=== PATIENT | female | born 2000 | race American Indian/Alaskan Native ===

== ENCOUNTER 2020-04-25 09:58 | Emergency (ER) | payer MEDICAID ==
[2020-04-25] MEDS ORDERED: SODIUM CHLORIDE 0.9% 1000 ML 1,000 ML IV ONE (10:39)
[2020-04-25] MEDS ORDERED: fentaNYL 100 MCG/2 ML INJ IV ONE (10:39)
[2020-04-25] MEDS ORDERED: ONDANSETRON 4 MG/2 ML INJ IV ONE (10:39)
[2020-04-25 10:45] LABS: Basophils # (Auto) 0.1 K/mm3 (0.0-0.1); Basophils % (Auto) 0.4 % (0.0-1.8); Eosinophils # (Auto) 0.3 K/mm3 (0.0-0.4); Eosinophils % (Auto) 2.1 % (0.0-4.3); Hematocrit 35.3 % (30.3-42.9); Lymphocytes # (Auto) 1.2 K/mm3 (1.2-5.4); Lymphocytes % (Auto) 8.6 % (13.4-35.0); Mean Corpuscular HGB Conc 34 % (30-34); Mean Corpuscular Volume 74 fl (79-97); Monocytes # (Auto) 0.9 K/mm3 (0.0-0.8); Monocytes % (Auto) 6.6 % (0.0-7.3); Platelet Count 312 K/mm3 (140-440); Red Blood Count 4.77 M/mm3 (3.65-5.03); Red Cell Distribution Width 17.3 % (13.2-15.2)
--- NOTE | 2020-04-25 10:45 | Emergency Department Report ---
HPI - General Chief Complaint: Abdominal Pain Time Seen by Provider: 04/25/20 10:33 - [facility] HPI: Room 22 The patient is a 19-year-old female presenting with a chief complaint of abdominal pain. The patient states she is 4 days from a vaginal d elivery. The patient states that approximately 23: 00 last night she developed pain in the right lower quadrant that is difficult to describe. Patient states the pain is been constant and associated with nausea and vomiting. Patient denies dysuria or fever. Patient gives her pain a score of 10/10. The patient states she did not contact her [facility] Past Medical Hx - Past Medical History Previous Medical History?: No - Surgical History Past Surgical History?: No - Family History Family history: no significant - Social History Smoking Status: Never Smoker Substance Use Type: None (Denies illicit drug use) - Medications Home Medications: Home Medications Medication Instructions Recorded Confirmed Last Taken Type HYDROcodone/APAP 5-325 [[place] 1 each PO Q6HR PRN #10 tablet 04/25/20 Unknown Rx 5/325] Promethazine [Phenergan] 25 mg PO Q6HR PRN #20 tab 04/25/20 Unknown Rx levoFLOXacin [Levaquin TAB] 500 mg PO QDAY #10 tablet 04/25/20 Unknown Rx ED Review of Systems ROS: Stated complaint: 4 DAYS POST /ABD PAIN Other details as noted in HPI Constitutional: denies: fever Respiratory: no symptoms reported Endocrine: no symptoms reported Gastrointestinal: abdominal pain, nausea, vomiting Genitourinary: denies: dysuria Musculoskeletal: denies: back pain Physical Exam - Physical Exam Vital Signs: Vital Signs 04/25/20 10:16 Pulse Rate 84 Respiratory 14 Rate Blood Pressure 168/108 [Left] O2 Sat by Pulse 99 Oximetry Physical Exam: GENERAL: The patient is well-developed well-nourished female lying on stretcher appearing to be in mild discomfort. [] HEENT: Normocephalic. Atraumatic. Extraocular motions are intact. Patient has moist mucous membranes. NECK: Supple. Trachea midline CHEST/LUNGS: Clear to auscultation. There is no respiratory distress noted. HEART/CARDIOVASCULAR: Regular. There is no tachycardia. There is no gallop rub or murmur. ABDOMEN: Abdomen is soft, with tenderness to palpation in the right upper quadrant and right lower quadrant SKIN: There is no rash. There is no edema. There is no diaphoresis. NEURO: The patient is awake, alert, and oriented. The patient is cooperative. The patient has normal speech MUSCULOSKELETAL: There is no evidence of acute injury. There is no CVA tenderness ED Course Vital Signs 04/25/20 10:16 Pulse Rate 84 Respiratory 14 Rate Blood Pressure 168/108 [Left] O2 Sat by Pulse 99 Oximetry ED Medical Decision Making - Lab Data Result diagrams: 04/25/20 10:35 04/25/20 10:35 - Radiology Data Radiology results: report reviewed (CT abdomen pelvis, pelvic ultrasound), image reviewed (CT abdomen pelvis, pelvic ultrasound) [address] [address] Cat Scan Report Signed Patient: STEVE RAYMUNDO MR#: [id number] [birth year] : 2000 Acct:[id number] Age/Sex: 19 / F ADM Date: 04/25/20 Loc: ED Attending Dr: Ordering Physician: BISHNU BUTT MD Date of Service: 04/25/20 Procedure(s): CT abdomen pelvis w con Accession Number(s): [id number] cc: BISHNU BUTT MD CT of the abdomen and pelvis with contrast INDICATION: right lower quadrant pain COMPARISON: None FINDINGS: There is minimal basilar atelectasis. The liver, spleen, pancreas, adrenal glands and kidneys show no abnormalities. No definite gallbladder or biliary tree abnormality. No adenopathy is seen. There is small amount of retroperitoneal fluid and multiple dilated veins seen. CT of the pelvis shows an enlarged uterus consistent with the recent . There is no definite evidence for endometritis. No uterine perforation is seen. Appendix is not seen. No bowel obstruction. No free air demonstrated. No significant skeletal lesion. IMPRESSION: changes. The appendix is not seen. No definite acute abnormality. Automated exposure control was utilized to diminish radiation dose. Signer Name: Terry Roach MD Signed: 04/25/2020 11:58 AM Workstation Name: [id number] Transcribed By: MAIA Dictated By: Terry Roach MD Electronically Authenticated By: Terry Roach MD Signed Date/Time: 04/25/20 1158 DD/ 1148 TD/TT: [address] [place] [address] Ultrasound Report Signed Patient: STEVE RAYMUNDO MR#: [id number] : 2000 Acct:[id number] Age/Sex: 19 / F ADM Date: 04/25/20 Loc: ED Attending Dr: Ordering Physician: BISHNU BUTT MD Date of Service: 04/25/20 Procedure(s): US pelvis duplex doppler comp Accession Number(s): [id number] cc: BISHNU BUTT MD US pelvis duplex doppler comp, US transvaginal INDICATION / CLINICAL INFORMATION: Right pelvic pain. 4 days . COMPARISON: None available. FINDINGS: There is an enlarged uterus measuring 19 cm. The endometrial stripe thickness is 2.3 cm. The right ovary measures 4.4 x 2.1 cm. The left ovary measures 3.6 x 2.2 cm. Doppler imaging shows normal ovarian blood flow bilaterally. A Near the right adnexa an oval hypoechoic solid density is identified measuring 4.4 x 7 cm. There are adjacent prominent vascular structures but the hypodense solid lesion does not appear hypervascular itself. No fluid collections are seen in the cul-de-sac. IMPRESSION: 1. Hypoechoic solid-appearing density in the right adnexal region is of uncertain etiology. 2. No other significant pelvic abnormalities. Signer Name: Tarun Mchugh MD Signed: 04/25/2020 1:42 PM Workstation Name: [id number] Transcribed By: HI Dictated By: Tarun Mchugh MD Electronically Authenticated By: Tarun Mchugh MD Signed Date/Time: 04/25/20 1342 DD/ 1339 TD/TT: - Medical Decision Making CT and ultrasound results discussed with patient. Patient informed of right adnexal density and need for prompt follow-up with her flat drier. Patient verbalized understanding - Differential Diagnosis Appendicitis, ovarian cyst, UTI, pyelonephritis Critical care attestation.: If time is entered above; I have spent that time in minutes in the direct care of this critically ill patient, excluding procedure time. ED Disposition Clinical Impression: Abdominal pain, UTI (urinary tract infection), Adnexal mass Disposition: DC-01 TO HOME OR SELFCARE Is pt being admited?: No Does the pt Need Aspirin: No Condition: Stable Instructions: Abdominal Pain (ED) Additional Instructions: Return to the emergency department should you develop worsening symptoms, inability to tolerate food or liquids, high fever or any other concerns Prescriptions: levoFLOXacin [Levaquin TAB] 500 mg PO QDAY #10 tablet HYDROcodone/APAP 5-325 [[place] 5/325] 1 each PO Q6HR PRN #10 tablet PRN Reason: Pain Promethazine [Phenergan] 25 mg PO Q6HR PRN #20 tab PRN Reason: Nausea Referrals: Your, flat drier [Other] - [facility] Time of Disposition: 15:43
[2020-04-25 11:08] LABS: Alanine Aminotransferase 33 units/L (7-56); Albumin 4.1 g/dL (3.9-5); BUN/Creatinine Ratio 8; Blood Urea Nitrogen 5 mg/dL (7-17); Calcium 9.8 mg/dL (8.4-10.2); Hemolysis Index 2
--- NOTE | 2020-04-25 12:02 | Cat Scan Report ---
CT of the abdomen and pelvis with contrast INDICATION: right lower quadrant pain COMPARISON: None FINDINGS: There is minimal basilar atelectasis. The liver, spleen, pancreas, adrenal glands and kidne ys show no abnormalities. No definite gallbladder or biliary tree abnormality. No adenopathy is seen. There is small amount of retroperitoneal fluid and multiple dilated veins seen. CT of the pelvis shows an enlarged uterus consistent with the recent . There is no definite evidence for endometritis. No uterine perforation is seen. Appendix is not seen. No bowel obstruction . No free air demonstrated. No significant skeletal lesion. IMPRESSION: changes. The appendix is not seen. No definite acute abnormality. Automated exposure control was utilized to diminish radiation dose. Signer Name: Terry Roach MD Signed: 04/25/2020 11:58 AM Workstation Name: [id number]
--- NOTE | 2020-04-25 13:47 | Ultrasound Report ---
US pelvis duplex doppler comp, US transvaginal INDICATION / CLINICAL INFORMATION: Right pelvic pain. 4 days . COMPARISON: None available. FINDINGS: There is an enlarged uterus measuring 19 cm. The endometrial stripe thickness is 2.3 cm. The right ovary measures 4.4 x 2.1 cm. The left ovary measures 3.6 x 2.2 cm. Doppler imaging shows normal ovarian blood flow bilaterally. A Near the right adnexa an oval hypoechoic solid density is identified measuring 4.4 x 7 cm. There are adjacent prominent vascular structures but the hypodense solid lesion does not appear hypervascular i tself. No fluid collections are seen in the cul-de-sac. IMPRESSION: 1. Hypoechoic solid-appearing density in the right adnexal region is of uncertain etiology. 2. No other significant pelvic abnormalities. Signer Name: Tarun Mchugh MD Signed: 04/25/2020 1:42 PM Workstation Name: [id number]
[2020-04-25 14:59] LABS: Bilirubin,Urine NEG (Negative); Blood,Urine LG (Negative); Color,Urine Yellow (Yellow); Protein,Urine <15 mg/dL mg/dL (Negative); Urobilinogen,Urine < 2.0 mg/dL (<2.0)
[2020-04-25 15:02] LABS: RBC,Urine > 182.0 /HPF (0.0-6.0)
[2020-04-25] MEDS ORDERED: levoFLOXacin 500 MG TAB PO ONE (15:36)
[2020-04-25 16:50] VITALS: BP 144/94
== END 2020-04-25 16:49 | disposition home or self-care (01) ==
LOC: ED 09:58
DX: N39.0 Urinary tract infection, site not specified (principal); N94.89 Other specified conditions associated with female genital organs and menstrual cycle; R10.9 Unspecified abdominal pain; R11.2 Nausea with vomiting, unspecified; Z79.899 Other long term (current) drug therapy
CPT/HCPCS: 36415; 74177; 76830; 80053; 81001; 85025; 87086; 93975; 96361; 96374; 96375; 99284; J2405; J3010; J7030; Q9967

== ENCOUNTER 2021-10-04 17:26 | Emergency (ER) | payer MEDICAID ==
[2021-10-04 18:43] VITALS: BP 122/68
[2021-10-04] MEDS ORDERED: ACETAMINOPHEN 325 MG/10.15 ML ORAL LIQD UNIT DOSE PO ONE (19:26)
[2021-10-04] MEDS ORDERED: LIDOCAINE VISCOUS 2% 15 ML ORAL LIQD PO ONE (19:26)
--- NOTE | 2021-10-04 19:27 | Emergency Department Report ---
ED General Adult HPI - General Chief complaint: Pain General Stated complaint: Sore throat. Coughing. Intermittent coughing up blood. Time Seen by Provider: 10/04/21 19:15 Source: patient, RN notes reviewed, old records reviewed Mode of arrival: Ambulatory Limitations: No Limitations - History of Present Illness Initial comments: The patient is a 20-year-old female. She is not known to myself previously. The patient does not think she is , but she is not certain. Her past medical history includes marijuana smoking and consumption. The patient presents to the ER with a complaint of sore throat, intermittently coughing, sometimes mucus, clear, and occasionally bloody, and painful lymph nodes. She denies additional injuries or complaints. She reports that she has taken penicillin at home, leftover from a prior "strep infection", as well as lidocaine. She denies additional injuries or complaints. She has also taking occasional ibuprofen and/or acetaminophen. -: Gradual, days(s) Location: mouth Quality: aching Consistency: intermittent Improves with: rest Worsens with: eating - Related Data Previous Rx's Medication Instructions Recorded Last Taken Type HYDROcodone/APAP 5-325 [[place] 1 each PO Q6HR PRN #10 tablet 04/25/20 Unknown Rx 5/325] Promethazine [Phenergan] 25 mg PO Q6HR PRN #20 tab 04/25/20 Unknown Rx levoFLOXacin [Levaquin TAB] 500 mg PO QDAY #10 tablet 04/25/20 Unknown Rx Allergies Allergy/AdvReac Type Severity Reaction Status Date / Time No Known Allergies Allergy Unverified 04/25/20 10:14 ED Review of Systems ROS: Stated complaint: THROAT,NECK PAIN, PAINFULL SWALLOW BLOOD Other details as noted in HPI Constitutional: denies: fever Eyes: denies: eye discharge ENT: ear pain (Left-sided), throat pain, congestion. denies: dental pain, epistaxis Respiratory: cough Cardiovascular: as per HPI Endocrine: see HPI Gastrointestinal: as per HPI Genitourinary: as per HPI Musculoskeletal: as per HPI Skin: as per HPI Neurological: as per HPI Psychiatric: as per HPI Hematological/Lymphatic: as per HPI ED Past Medical Hx - Past Medical History Previous Medical History?: No - Surgical History Past Surgical History?: No - Social History Smoking Status: Current Some Day Smoker - Medications Home Medications: Home Medications Medication Instructions Recorded Confirmed Last Taken Type HYDROcodone/APAP 5-325 [[place] 1 each PO Q6HR PRN #10 tablet 04/25/20 Unknown Rx 5/325] Promethazine [Phenergan] 25 mg PO Q6HR PRN #20 tab 04/25/20 Unknown Rx levoFLOXacin [Levaquin TAB] 500 mg PO QDAY #10 tablet 04/25/20 Unknown Rx ED Physical Exam - General Limitations: No Limitations General appearance: alert, in no apparent distress - Head Head exam: Present: atraumatic, normocephalic - Eye Eye exam: Present: normal appearance, EOMI. Absent: nystagmus - ENT ENT exam: Present: normal exam (There is no exudates. The trachea is midline. The uvula is midline. Phonating in complete sentences. There is no stridor.), normal orophraynx, mucous membranes moist, TM's normal bilaterally, normal external ear exam, other (There is no mastoid tenderness) - Neck Neck exam: Present: normal inspection, full ROM, lymphadenopathy (Minimal anterior cervical adenopathy on the right side). Absent: tenderness, meningismus - Respiratory Respiratory exam: Present: normal lung sounds bilaterally. Absent: respiratory distress, wheezes, rales, rhonchi, stridor - Cardiovascular Cardiovascular Exam: Present: regular rate, normal rhythm, normal heart sounds. Absent: bradycardia, tachycardia, irregular rhythm, systolic murmur, diastolic murmur, rubs, gallop - GI/Abdominal GI/Abdominal exam: Present: soft. Absent: distended, tenderness, guarding, rebound, rigid, pulsatile mass - Extremities Exam Extremities exam: Present: normal inspection, full ROM, other (2+ pulses noted in the bilateral upper extremities). Absent: pedal edema, calf tenderness - Back Exam Back exam: Present: normal inspection, full ROM. Absent: tenderness, CVA tenderness (R), CVA tenderness (L), paraspinal tenderness, vertebral tenderness - Neurological Exam Neurological exam: Present: alert, oriented X3, normal gait, other (No facial droop. Tongue midline. Extraocular movements intact bilaterally. Facial sensation intact to light touch in V1, V2, V3 distribution bilaterally. 5 and a 5 strength in 4 extremities. Sensation intact to light touch in 4 extremities.). Absent: motor sensory deficit - Psychiatric Psychiatric exam: Present: normal affect, normal mood - Skin Skin exam: Present: warm, dry, intact, normal color. Absent: rash ED Course Vital Signs 10/04/21 10/04/21 10/04/21 18:07 18:41 19:38 Temperature 98.7 F 98.0 F Pulse Rate 87 67 Respiratory 18 12 16 Rate Blood Pressure 140/92 Blood Pressure 122/68 [Right] O2 Sat by Pulse 96 99 Oximetry - Reevaluation(s) Reevaluation #1: 10/04/21 19:46 Differential diagnosis, including but not limited to: Bronchitis, pharyngitis, marijuana use, encounter for test Assessment and plan: 20-year-old female, who was afebrile, with reassuring vital signs, not stridulous, on my initial examination, speaking in complete sentences, noted to be on a cellular phone, in no acute distress. Patient low risk for strep pharyngitis via Centor score,1 points 5% - 10% likelihood of strep No further testing nor antibiotics. Lung sounds are clear to auscultation bilaterally, and chest x-ray not indicated in my opinion, given that she is young, and not hypoxic without focal pulmonary findings. She is not sure if she is . She denies abdominal pain. Have counseled the patient to discontinue marijuana and smoke consumption. Salt water gargles, Tylenol and Motrin as needed, presuming she is not . If urine test positive, Tylenol for pain, outpatient follow-up. This patient does not appear to have an emergent medical condition present at this time. 10/04/21 20:24 test negative. Patient remains on cell phone. She is in no acute distress. Discharge with outpatient follow-up. She still continues to protect her airway and phonate well. ED Medical Decision Making - Lab Data Vital Signs 10/04/21 10/04/21 10/04/21 18:07 18:41 19:38 Temperature 98.7 F 98.0 F Pulse Rate 87 67 Respiratory 18 12 16 Rate Blood Pressure 140/92 Blood Pressure 122/68 [Right] O2 Sat by Pulse 96 99 Oximetry Critical care attestation.: If time is entered above; I have spent that time in minutes in the direct care of this critically ill patient, excluding procedure time. ED Disposition Clinical Impression: Sore throat, Marijuana use, test negative Disposition: 01 HOME / SELF CARE / HOMELESS Is pt being admited?: No Does the pt Need Aspirin: No Condition: Good Instructions: What You Need to Know About Marijuana Use, Pharyngitis, [id number] Additional Instructions: Recommend that patient use salt water gargles [id number] as often as needed for physical pain. Advance diet as tolerated, avoid consumption of heavy and spicy foods, alcohol, tobacco and smoke products. Recommend that patient discontinue and avoid marijuana consumption. Patient may take Tylenol [id number], 650 mg by mouth, every 4-6 hours as needed for pain, maximum daily dose to not exceed 3 g per 24 hours. Patient may take ibuprofen, 400 mg by mouth, with food, every 6 hours as needed for physical pain. Recommend that patient follow-up with their primary care doctor in the next 5 to 7 days for repeat checkup and evaluation. Please return to the emergency room right away with new pain, worsened pain, migration of pain, projectile vomiting, change in mental status, confusion, inability to tolerate liquid feeds, change in mental status, or any new, worsened or different symptoms not present on the initial emergency room evaluation. Symptoms likely coming from throat irritation, likely secondary to marijuana consumption. Referrals: [facility] [Provider Group] - 3-5 Days [facility] [Outside] - 3-5 Days Forms: Work/School Release Form(ED)
[2021-10-04 19:57] LABS: HCG Qualitative,Urine Negative (Negative)
== END 2021-10-04 20:50 | disposition left against medical advice (07) ==
LOC: ED 17:26
DX: J02.9 Acute pharyngitis, unspecified (principal); F12.90 Cannabis use, unspecified, uncomplicated; Z32.02 Encounter for pregnancy test, result negative; F17.200 Nicotine dependence, unspecified, uncomplicated
CPT/HCPCS: 81025; 99283